=== PATIENT | female | born 1955 | race Caucasian/White ===

== ENCOUNTER → 2018-08-16 09:37 | Outpatient (CLI) | payer OTHER, SELFPAY ==
--- NOTE | 2018-08-16 | CER_PTH ---
PATIENT: LIZABETH URIBE LOC: [facility] U#:[id number] AGE/SX: 69/F ROOM: RE08/16/[address]: Dr. 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 Rare strips of benign superficial endocervix. AM:mandeep 08/17/18 COMMENT Results from immunohistochemistry ([id number]) for surrogate HPV marker (p16) will be reported separately. Case has been reviewed in consultation with Dr. Ness who concurs with the above diagnosis. IDC:SJ MICROSCOPIC DESCRIPTION Slides are reviewed. GROSS DESCRIPTION Received in fixative is one container labeled with the patient's name and designated ECC. No obvious tissue is identified. The specimen is filtered and submitted entirely for cell block preparation. / CONCHIS:mandeep 08/16/18 TC:5 CPT: 85100
--- NOTE | 2018-08-16 | IMM_PTH ---
PATIENT: LIZABETH URIBE LOC: [facility] U#:[id number] AGE/SX: 69/F ROOM: RE08/16/[address]: Dr. Antonio Logan MD : 1955 BED: DIS: SPEC #: [id number] RECD: 08/17/18 13:05 STATUS: ANTHONY REMaria A #: [id number] CHAPO: 08/16/18 00:[address]: Antonio Logan DEPT: IMMUNOHISTOCHEMISTRY RECD BY: Sue Whiting Tissues: Endocervical Procedures: p16 (initial) KI-67 (add) PHYSICIAN & INSTITUTION [place] [address] SPECIMEN INFORMATION: Tissue Source: [facility] Clinical Info: MICHAELA Specimen Number: [id number] CPT code: 39596, 80113 METHODOLOGY: Deparaffinized sections of prefer/formalin-fixed tissue or PAP/DQ stained slides are incubated with monoclonal/polyclonal antibodies/oligonucleotide probes. Localization is made via biotin free immunoperoxidase method. Appropriate controls are performed and reacted as expected. Results on target cell population are indicated in the following table: RESULTS: ANTIBODY / CLONE RESULT P16 (E6H4) positive, focal patchy Ki-67 (30-9) positive, focal These tests were developed and their performance characteristics determined by [facility]. They may not have been cleared or approved by the U.S. Food and Drug Administration. The FDA has determined that such clearance or approval is not necessary. INTERPRETATION: Endocervical curettage: Consistent with focal HPV change/JOCELYNE I (LSIL). AM:mandeep 08/17/18
--- OUTSIDE RECORDS SUMMARY | 2018-10-02 12:22 | XMS RPT_ITS ---
:1955 Author Organization OHIP Care Team Providers Name Role Phone Antonio Logan Attending Unavailable Antonio Logan Referring Unavailable PROBLEMS PROBLEMS No Problem Records FoundPROCEDURES PROCEDURES No Procedure Records FoundRESULTS RESULTS CERVICAL Observed: 08/16/2018 Status: F Source: [place] 12:00 AM [facility] REPOSITORY Patient: LIZABETH URIBE : 1955 (62/F) Acct Num: [id number] Phys: Antonio Logan MD Unit Num: [id number] Loc: [facility] Specimen: [id number] Received: 08/16/18 - 2 Spec Type: CERV TISSUES 1 TISSUES: Uterine cervix, NOS COMMENT Results from immunohistochemistry ([id number]) for surrogate HPV marker (p16) will be reported separately. Case has been reviewed in consultation with Dr. Ness who concurs with the above diagnosis. IDC:SJ GROSS DESCRIPTION Received in fixative is one container labeled with the patient's name and designated ECC. No obvious tissue is identified. The specimen is filtered and submitted entirely for cell block preparation. / SJ:mandeep 08/16/18 TC:5 CPT: 48840 HEADER OPERATION: Colposcopy PRE-OP DIAGNOSIS: LGSIL pap 07/12/18 TISSUE SUBMITTED: ECC MICROSCOPIC DESCRIPTION Slides are reviewed. MICROSCOPIC DIAGNOSIS Endocervix, curettings: Detached fragments of squamous epithelium with HPV cytopathic effect, JOCELYNE I (LSIL). Rare strips of benign superficial endocervix. AM:mandeep 08/17/18 Signed Yuri Brady 08/17/18 <signature on file> Performed By: #### PCER #### [facility] [place], [address] IMMUNOHISTOCHEMISTRY Observed: 08/16/2018 Status: F Source: [place] 12:00 AM [facility] REPOSITORY Patient: LIZABETH URIBE : 1955 (62/F) Acct Num: [id number] Phys: Antonio Logan MD Unit Num: [id number] Loc: [facility] Specimen: [id number] Received: 08/17/18 - 1305 Spec Type: IMMUNO TISSUES 1 TISSUES: Endocervical SPECIMEN INFORMATION: Tissue Source: E[facility] Clinical Info: LGSIL Specimen Number: [id number] CPT code: 30560, 49823 METHODOLOGY: Deparaffinized sections of prefer/formalin-fixed tissue or PAP/DQ stained slides are incubated with monoclonal/polyclonal antibodies/oligonucleotide probes. Localization is made via biotin free immunoperoxidase method. Appropriate controls are performed and reacted as expected. Results on target cell population are indicated in the following table: RESULTS: ANTIBODY / CLONE RESULT P16 (E6H4) positive, focal patchy Ki-67 (30-9) positive, focal These tests were developed and their performance characteristics determined by [facility]. They may not have been cleared or approved by the U.S. Food and Drug Administration. The FDA has determined that such clearance or approval is not necessary. INTERPRETATION: Endocervical curettage: Consistent with focal HPV change/JOCELYNE I (LSIL). AM:mandeep 08/17/18 PHYSICIAN AND INSTITUTION [place] [address] Signed Yuri [facility] 08/18/18 <signature on file> Performed By: #### PIMM #### [facility] [address] [place] [address]. [place], [place], [address] ALLERGIES ALLERGIES No Allergies Records FoundENCOUNTERS ENCOUNTERS ADMIT/DISCHARGE ACCOUNT ADMITTING ENCOUNTER LOCATION SOURCE NUMBER CLASS 08/16/2018 [id number] Ambulatory [address] ing:[facility]SPEC Repository PAYERS PAYERS ENCOUNTER GUARANTOR PAYER SUBSCRIBER SOURCE 08/16/2018 LIZABETH BARONE [place] [id number] TR Insurance:[facility] NORMANDOB: [address] Number: [id number] [address]Ica: . [id number] Repository (HP) Date:2018-08-16[address] [address]NC: 08/16/2018 Secondary NOT GIVENSUNNY [place] Insurance:SELF PAY [facility] Number: Effective Repository Date:2018-08-16
== END ==
PROVIDERS: Referring Provider Obstetrics & Gynecology; Visit Provider Obstetrics & Gynecology
DX: R87.612 Low grade squamous intraepithelial lesion on cytologic smear of cervix (LGSIL) (principal)
CPT/HCPCS: 88305; 88341; 88342

== ENCOUNTER → 2019-02-14 10:02 | Outpatient (CLI) | payer OTHER, SELFPAY ==
[2019-02-17 15:38] LABS: HPV HC, High Risk Negative (Negative)
== END ==
PROVIDERS: Visit Provider Obstetrics & Gynecology
DX: Z12.4 Encounter for screening for malignant neoplasm of cervix (principal); R87.612 Low grade squamous intraepithelial lesion on cytologic smear of cervix (LGSIL); Z78.0 Asymptomatic menopausal state
CPT/HCPCS: 87624; 88175; G0145

== ENCOUNTER 2021-12-22 11:34 | Outpatient (CLI) | payer OTHER, SELFPAY ==
--- NOTE | 2021-12-22 | CER_PTH ---
PATIENT: [facility]ETH URIBE [facility][id number] AGE/SX: 66/F ROOM: RE12/22/[address]: Dr. Saman Llamas MD : 1955 BED: DIS: 12/22/2021 SPEC #: [id number] RECD: 12/22/21 13:03 STATUS: ANTHONY VASQUEZ #: [id number] CHAPO: 12/22/21 00:[address]: Saman Llamas DEPT: SURGICAL PATHOLOGY RECD BY: Que Lynn Tissues: A - Uterine cervix, NOS B - Endocervical Procedures: Surgery Specimen Level IV HEADER OPERATION: Colposcopy PRE-OP DIAGNOSIS: LGSIL TISSUE SUBMITTED: A ? Cervical biopsy four-quadrant, B ? Endocervical curettings MICROSCOPIC DIAGNOSIS A. Cervix, four-quad biopsy: Mild squamous dysplasia, HPV change/JOCELYNE I. See comment. B. Endocervix, curettings: Strips of detached squamous mucosa with HPV change and hyperkeratotic squamous mucosa. Rare benign glandular epithelium. See comment. AM:mandeep 12/23/2021 COMMENT A & B. Results from immunohistochemistry ([id number]) for surrogate HPV marker (p16) will be reported separately. Case has been reviewed in consultation with Dr. Ness who concurs with the above diagnosis. RUSSELL:CONCHIS MICROSCOPIC DESCRIPTION Slides are reviewed. GROSS DESCRIPTION A - Received in fixative is one container labeled with the patient's name and designated cervical biopsy. The specimen consists of multiple irregular fragments of light child soft tissue that in aggregate measure 1 x 0.3 x 0.1 cm. The specimen is totally submitted in one cassette. B - Received in fixative is one container labeled with the patient's name and designated ECC. The specimen consists of multiple irregular fragments of child soft tissue that in aggregate measure 1.5 x 0.2 x 0.1 cm. The specimen is totally submitted in one cassette. / CONCHIS:mandeep 12/22/2021 TC:5 CPT: 46982 x2
--- NOTE | 2021-12-22 | IMM_PTH ---
PATIENT: LIZABETH URIBE LOC: [facility] U#:[id number] AGE/SX: 66/F ROOM: RE12/22/[address]: Dr. Saman Llamas MD : 1955 BED: DIS: 12/22/2021 SPEC #: [id number] RECD: 12/24/21 12:49 STATUS: ANTHONY PEDRO #: [id number] CHAPO: 12/22/21 00:[address]: Saman Llamas DEPT: IMMUNOHISTOCHEMISTRY RECD BY: Sue Whiting Tissues: A - Uterine cervix, NOS B - Endocervical Procedures: p16 (initial) KI-67 (add) PHYSICIAN & [place] [id number] SPECIMEN INFORMATION: Tissue Source: A ? Cervical biopsy four quadrant, B ? Endocervical curettings Clinical Info: [facility] Specimen Number: [id number] A & B CPT code: 24035 x2, 21993 x2 METHODOLOGY: Deparaffinized sections of prefer/formalin-fixed tissue or PAP/DQ stained slides are incubated with monoclonal/polyclonal antibodies/oligonucleotide probes. Localization is made via biotin free immunoperoxidase method. Appropriate controls are performed and reacted as expected. Results on target cell population are indicated in the following table: RESULTS: ANTIBODY / CLONE RESULT Block A P16 (E6H4) positive, focal, patchy Ki-67 (30-9) negative Block B P16 (E6H4) positive, focal, patchy Ki-67 (30-9) positive, low These tests were developed and their performance characteristics determined by [facility]. They may not have been cleared or approved by the U.S. Food and Drug Administration. The FDA has determined that such clearance or approval is not necessary. The above immunohistochemical/dualISH markers are ordered and reviewed by the Pathologist. INTERPRETATION: A. Cervix, four quadrant biopsy: Consistent with focal HPV change. B. Endocervical curettings: Consistent with focal HPV change. AM:mandeep 12/25/2021
== END 2021-12-22 23:59 | disposition home or self-care (01) ==
LOC: LABSPEC 11:35
PROVIDERS: Visit Provider Obstetrics & Gynecology
DX: N87.0 Mild cervical dysplasia (principal)
CPT/HCPCS: 88305; 88341; 88342

== ENCOUNTER → 2022-12-29 | Outpatient (CLI) | payer OTHER, MEDICARE, SELFPAY ==
[2023-01-08 14:09] LABS: HPV APTIMA, High Risk Negative (Negative)
== END | disposition home or self-care (01) ==
LOC: WOBLAB 16:08
PROVIDERS: Visit Provider Obstetrics & Gynecology
DX: Z12.4 Encounter for screening for malignant neoplasm of cervix (principal)
CPT/HCPCS: 87624; 88175; G0145

== ENCOUNTER → 2023-02-04 | Outpatient (CLI) | payer OTHER, MEDICARE, SELFPAY ==
--- NOTE | 2023-02-04 | CER_PTH ---
PATIENT: [facility]ZABETH URIBE [id number] AGE/SX: 67/F ROOM: RE02/04/[address]: Dr. Arik Hannah MD : 1955 BED: DIS: 02/04/2023 SPEC #: [id number] RECD: 02/04/23 13:51 STATUS: ANTHONY COOLEYMaria A #: [id number] CHAPO: 02/04/23 00:[address]: Arik Hannah DEPT: SURGICAL PATHOLOGY RECD BY: Que Lynn Tissues: A - Uterine cervix, NOS B - Endocervical Procedures: Surgery Specimen Level IV HEADER OPERATION: Colposcopy PRE-OP DIAGNOSIS: HGSIL TISSUE SUBMITTED: A ? Alphonso 1, 6, 7, 11 o?clock, B ? Endocervical curettings MICROSCOPIC DIAGNOSIS A. Cervix at 1, 6, 7 & 11 o?clock, biopsies: No evidence of dysplasia. See comment. B. Endocervix, curettings: Rare benign epithelial cells present. AM:mandeep 02/08/2023 COMMENT A. Results from immunohistochemistry ([id number]) for surrogate HPV marker (p16) will be reported separately. MICROSCOPIC DESCRIPTION Slides are reviewed. GROSS DESCRIPTION A - Received in fixative is one container labeled with the patient's name and designated 1, 6, 7 & 11 o'clock. The specimen consists of multiple irregular fragments of light child soft tissue that in aggregate measure 1.0 x 0.3 x 0.1 cm. The specimen is totally submitted in one cassette. B - Received in fixative is one container labeled with the patient's name and designated endocervical curettings. The specimen consists of a scant amount of soft tissue. The specimen is totally submitted for cell block preparation. / CONCHIS:mandeep 02/05/2023 TC:3 CPT: 76214 x2
--- NOTE | 2023-02-04 | IMM_PTH ---
PATIENT: LIZABETH URIBE LOC: [facility] U#:[id number] AGE/SX: 67/F ROOM: RE02/04/[address]: Dr. Arik Hannah MD : 1955 BED: DIS: 02/04/2023 SPEC #: [id number] RECD: 02/08/23 12:38 STATUS: ANTHONY REMaria A #: [id number] CHAPO: 02/04/23 00:[address]: Arik Hannah DEPT: IMMUNOHISTOCHEMISTRY RECD BY: Sue Whiting Tissues: A - Uterine cervix, NOS Procedures: p16 (initial) KI-67 (add) PHYSICIAN & INSTITUTION [place] [address] SPECIMEN INFORMATION: Tissue Source: Cervix at 1, 6, 7 & 11 o?clock Clinical Info: HGSIL Specimen Number: [id number] CPT code: 67201, 08905 METHODOLOGY: Deparaffinized sections of prefer/formalin-fixed tissue or PAP/DQ stained slides are incubated with monoclonal/polyclonal antibodies/oligonucleotide probes. Localization is made via biotin free immunoperoxidase method. Appropriate controls are performed and reacted as expected. Results on target cell population are indicated in the following table: RESULTS: ANTIBODY / CLONE RESULT P16 (E6H4) negative Ki-67 (30-9) negative These tests were developed and their performance characteristics determined by [facility]. They may not have been cleared or approved by the U.S. Food and Drug Administration. The FDA has determined that such clearance or approval is not necessary. The above immunohistochemical/dualISH markers are ordered and reviewed by the Pathologist. INTERPRETATION: Cervix at 1, 6, 7 & 11 o?clock, biopsy: No evidence of dysplasia. AM:mandeep 02/09/2023
== END | disposition home or self-care (01) ==
LOC: LABSPEC 13:45
PROVIDERS: Visit Provider Obstetrics & Gynecology
DX: R87.613 High grade squamous intraepithelial lesion on cytologic smear of cervix (HGSIL) (principal)
CPT/HCPCS: 88305; 88341; 88342

== ENCOUNTER 2023-07-01 06:00 | Day surgery (SDC) | payer OTHER, MEDICARE, SELFPAY ==
[2023-07-01 06:42] VITALS: BP 101/54; PULSE 61; RESP 18; TEMP 36.4; O2SAT 100; BMI 22.1
[2023-07-01] MEDS: Lactated Ringers 1,000 ML 15 ML IV ×2 (07:14→08:26)
--- NOTE | 2023-07-01 07:14 | PCM.HP.BLA ---
History and Physical Date of Admission: 07/01/23 Interim Note: The patient is examined and there are no changes to the exam dated 06/11/23. Pt with upper eyelid dermatochalasis obstructing vision. Assessment & Plan Assessment/Plan (1) Visual field defect: (2) Dermatochalasis of both eyelids: PLAN: Plan Informed consent obtained. Pt for upper blepharoplasty.
[2023-07-01] MEDS: Povidone Iodine 30 ML Opthalmic Sol 1 DRP (08:00)
[2023-07-01] MEDS: Petrolatum,White 3.75GM OPTH.TUBE OPHTHALMIC (08:05)
[2023-07-01] MEDS: Epinephrine (1 mg/ml) 1 MG/ML VIAL (08:08)
[2023-07-01] MEDS: Tetracaine 0.5% Ophthalmic Bottle 1 DRP (08:08)
[2023-07-01] MEDS: Lidocaine 1% /Epi 1:100 (50ml) 50 ML VIAL (08:44)
[2023-07-01] MEDS: Erythromycin Ophthalmic (NSY) 1 GM OPTH.TUBE 1 APPLIC OPHTHALMIC (09:04)
--- NOTE | 2023-07-01 09:14 | DCINST_ITS ---
Discharge Instructions Diet Discharge Diet: No restrictions Activity Additional Activity Instructions:: Keep your head elevated to reduce swelling and bruising. Keep the cold compresses on today as much as possible. Follow instructions given in the office. Follow Up Care Please Follow Up With: Francesca Liu MD Test Results: Test results from this visit will be discussed in further detail at your follow- up appointment, if applicable. Discharge Plan Admission Attending Provider: Francesca Liu Primary Care Provider: Earline Plascencia Discharge Orders/Prescriptions Prescriptions: No Action atenolol 50 mg tablet 25 mg PO QHS Patient Comments: TAKE 1/2 (ONE-HALF) TABLET BY MOUTH ONCE DAILY venlafaxine 150 mg capsule,extended release 24hr 150 mg PO DAILY Patient Comments: TAKE 1 CAPSULE BY MOUTH ONCE DAILY amitriptyline 50 mg tablet 50 mg PO QHS Patient Comments: TAKE 1 TABLET BY MOUTH AT BEDTIME zinc gluconate 50 mg tablet 50 mg PO DAILY cholecalciferol (vitamin D3) [Vitamin D3] 125 mcg (5,000 unit) tablet 125 mcg PO DAILY melatonin 10 mg capsule 10 mg PO QHS C Complex 1,000 mg tablet extended release 1,000 mg PO DAILY vitamin B complex Capsule 1 cap PO DAILY calcium carbonate 600 mg calcium (1,500 mg) tablet 600 mg PO DAILY Patient Comments: TAKE 1 TABLET BY MOUTH ONCE DAILY Referrals / Follow Up: Earline Plascencia PA [Primary Care Provider] - Disposition Disposition (needs filled in before D/C Order can be placed): Home, Self Care
--- NOTE | 2023-07-01 09:17 | PCM.OPRPT ---
Problems Associated Problem List Diagnoses (1) Visual field defect: (2) Dermatochalasis of both eyelids: Report of Operation Date of Procedure: 07/01/23 Pre-Operative Diagnosis: Bilateral upper eyelid dermatochalasis obstructing visual alvares Post-Operative Diagnosis: Same Surgery/Procedure Performed:: Bilateral upper blepharoplasty Surgeon: Francesca Liu payroll accounting clerk: CLOVIS GALARZAprogram facilitator Type of Anesthesia: General Estimated Blood Loss (mL): Minimal Description of Procedure: The procedure of upper blepharoplasty was reviewed with the patient and informed consent obtained. She is marked in the preop holding area prior to surgery. The patient was brought to the operating room and placed under general anesthesia in the supine position. The face is prepped and draped in the usual sterile fashion. Lacri-Lube and corneal knight are placed after instilling tetracaine drops in the eyes. We initially began with injecting 1% Xylocaine with epinephrine along the incision lines. After waiting a suitable amount of time for the medication to take effect, the incisions are incised. Epinephrine soaked Codman patties are placed on the incisions. The skin is taken off as a separate layer preserving all underlying structures. Hemostasis is controlled with bipolar cautery. A strip of orbicularis oculi is then removed within the operative site. Again hemostasis is assured with bipolar cautery. The incision is then tacked together with a fast-absorbing gut suture. Cool compresses are placed on the eye and we directed our attention to the opposite side where an identical procedure was performed. Following this, a 5-0 Prolene suture was used to approximate skin edges in a subcuticular fashion. The suture is then anchored at the glabella and druze using Mastisol and half-inch Steri-Strips. Erythromycin ophthalmic ointment is placed on the incisions. The corneal knight are removed. Cool compresses are placed on the eyes. She tolerated the procedure well and was taken to the recovery area in an awake and stable condition. Needle and sponge counts are correct. Complications None Admit VTE Documentation VTE Mechan Device Prophylaxis: SCD's
[2023-07-01 09:18] VITALS: BP 101/54; BP 126/61; PULSE 105; RESP 18; TEMP 36.4; O2SAT 97
[2023-07-01 09:30] VITALS: BP 101/54; BP 137/75; PULSE 99; RESP 18; O2SAT 94
[2023-07-01 09:45] VITALS: BP 101/54; BP 117/56; PULSE 97; RESP 18; TEMP 36.4; O2SAT 94
[2023-07-01 10:13] VITALS: BP 101/54
== END 2023-07-01 10:33 | disposition home or self-care (01) ==
LOC: SDC 06:01 → AC 06:02
PROVIDERS: PCP Physician Assistant; Referring Provider Plastic Surgery; Visit Provider Plastic Surgery
PROC: (CPT 15823; principal; 2023-07-01 07:20)
DX: H02.831 Dermatochalasis of right upper eyelid (principal); H02.834 Dermatochalasis of left upper eyelid; F41.9 Anxiety disorder, unspecified; F32.A Depression, unspecified; I10 Essential (primary) hypertension; F17.200 Nicotine dependence, unspecified, uncomplicated; Z79.899 Other long term (current) drug therapy
CPT/HCPCS: 15823; 00103; J7120; J2405; J3475